=== PATIENT | female | born 1930 | race Caucasian/White ===

== ENCOUNTER 2017-09-06 16:08 | Emergency (ER) | payer BC ==
[2017-09-06 16:59] VITALS: BMI 22.6
--- NOTE | 2017-09-06 17:02 | PDOC ---
Attending Attestation - HPI HPI: 09/06/17 17:50 The patient is a 86 year old female, with a significant past medical history of CAD s/p stents, cholecystectomy, hypertension, acute renal insufficiency, and diabetes, who presents to the emergency department via EMS s/p mechanical fall yesterday. The patient fell on her right side while using her walker. She denies hitting her head and any loss of consciousness. Allergies: Losartin potassium, Penicillins, quinapril HCl, ranolazine. Social history: Nonsmoker. Denies EtOH use and recreational drug use. Past surgical history: cholecystectomy, stents Primary Care Physician: Dr. Dalton <Feliciano Weldon - Last Filed: 09/06/17 17:50> - Resident Resident Name: Pepe Smith - ED Attending Attestation I have performed the following: I have examined & evaluated the patient, The case was reviewed & discussed with the resident, I agree w/resident's findings & plan, Exceptions are as noted - Physicial Exam PE: 09/06/17 18:22 Patient is awake and alert, pale appearing, in no distress Normocephalic, atraumatic EOMI, conjunctiva are pale Neck is supple, there is no midline tenderness, no deformity; CTA, + tenderness to palpation along the anterior clavicular and anterior axillary lines in the intercostal spaces 4, 5, 6, 7 and 8 without bony crepitus or subcutaneous emphysema; RRR Pelvis is stable Range of motion to upper and lower extremities bilaterally; Gait deferred at this time. Cranial nerves II through XII grossly intact; motor is 5 of 54; no pronation drift; - Medical Decision Making 09/06/17 18:24 Patient is an 86-year-old female with multiple comorbidities who presents to the ER with traumatic right sided chest wall pain more than 24 hours after the mechanical fall. No head injury was reported and there is no indication for CT of head at this time as there are no signs and symptoms of acute intracranial pathology at this time. Will obtain right sided rib series and chest x-ray to rule out rib fractures/pneumothorax/hemothorax. Will reassess. Likely discharge. 09/06/17 19:39 Patient reassessed. Patient with mild to moderate right sided chest wall pain. We'll administer IV morphine. Chest x-ray reveals mildly displaced fractures of the ninth and 10th ribs with a small right-sided pleural effusion. Patient will require admission for pain control and pulmonary toilet. Will admit. 09/06/17 21:04 Patient reassessed. Patient refuses pain medication and wishes to be discharged home. A discussed the risk and benefits of discharge with the patient and her family. They expressed understanding. Will provide incentives barometer. Will discharge. <Rich Harris - Last Filed: 09/06/17 21:04> Attestations - Attestations 09/06/17 17:50 Documentation prepared by Feliciano Weldon, acting as medical equipment sales for Rich Harris MD. <Feliciano Weldon - Last Filed: 09/06/17 17:50>
[2017-09-06] MEDS ORDERED: ACETAMINOPHEN 1000 MG/100 ML VIAL (NON FORMULARY) IVPB ONE (17:18)
--- NOTE | 2017-09-06 17:50 | PDOC ---
History of Present Illness - History of Present Illness Initial Comments: 09/06/17 17:49 86 yo F w a hx of CAD s/p stents, cholecystectomy, hypertension, acute renal insufficiency, and diabetes, is here after tripping yesterday and falling down. She landed on her right ribs. She was walking with one hand on her walker and the other hand trying to hold something. She insists she did not hit her head when she fell, did not feel lightheaded beforehand, had no prodromal symptoms, and denies LOC at any point before or after the fall. Her right ribs are currently hurting her. She denies pain anywhere else. She was able to ambulate after the fall yesterday and reports no leg pain. She does admit to taking plavix. She denies recent fevers or infections. Denies any other joint pain. 09/06/17 17:50 <Pepe Smith - Last Filed: 09/06/17 19:32> <Rich Harris - Last Filed: 09/06/17 21:42> - General Chief Complaint: Injury Stated Complaint: FALL Time Seen by Provider: 09/06/17 16:30 Past History - Past Medical History Cardiac Disorders: Yes COPD: No Diabetes: Yes Dialysis: No (has chronic renal insufficiency) HTN: Yes Other medical history: gout - Surgical History Cardiac Surgery: Yes (stents) Cholecystectomy: Yes - Immunization History Immunization Up to Date: Yes - Suicide/Smoking/Psychosocial Hx Smoking Status: No Smoking History: Never smoked Have you smoked in the past 12 months: No Number of Cigarettes Smoked Daily: 0 Information on smoking cessation initiated: No Hx Alcohol Use: No Drug/Substance Use Hx: No <Pepe Smith - Last Filed: 09/06/17 19:32> <Rich Harris - Last Filed: 09/06/17 21:42> - Past Medical History Allergies/Adverse Reactions: Allergies Allergy/AdvReac Type Severity Reaction Status Date / Time losartan potassium Allergy Verified 02/16/16 17:45 [From Cozaar] Penicillins Allergy Verified 02/16/16 17:45 quinapril HCl [From Accupril] Allergy Verified 02/16/16 17:45 ranolazine [From Ranexa] Allergy Verified 02/16/16 17:45 Home Medications: Ambulatory Orders Atenolol [Tenormin -] 50 mg PO DAILY 08/19/12 Atorvastatin Ca [Lipitor] 10 mg PO HS 08/19/12 Cholecalciferol (Vitamin D3) [Vitamin D3 -] 1,000 unit PO DAILY 08/19/12 Clopidogrel Bisulfate [Plavix -] 75 mg PO DAILY 08/19/12 Hydrocodone Bit/Acetaminophen [Vicodin Es 7.5-750mg -] 1 - 2 tab PO QID PRN 04/02 [place] 3/Dha/Epa/Other Om3/D3 [[place]-3 + Vitamin D3 Liquid] 2,000 mg PO DAILY 04/02 Amlodipine Besylate [Norvasc -] 10 mg PO DAILY #0 tablet 08/21/12 Glipizide [Glucotrol -] 5 mg PO DAILY 02/16/16 Sodium Polystyrene Sulfon/Sorb [Sps 30 gm/120 ml Enema] 2 tbs PO DAILY 02/16/16 Allopurinol [Zyloprim -] 150 mg PO DAILY 09/06/17 B1/B2/B3/B5/B6/Iron/Meth/Choln [Geritol Tonic Liquid] 5 ml PO DAILY 09/06/17 Lorazepam [Ativan] 2 mg PO ASDIR PRN 09/06/17 Review of Systems - Review of Systems Comments:: 09/06/17 17:56 CARDIOVASCULAR: Positive: Right rib pain Absent: syncope, palpitations, irregular heart rate, lightheadedness, peripheraledema RESPIRATORY: Positive: pleuritic chest pain Absent: cough, shortness of breath, dyspnea with exertion, orthopnea, wheezing, stridor, hemoptysis MUSCULOSKELETAL: Absent: myalgia, arthralgia, joint swelling CONSTITUTIONAL: Absent: fever, chills, diaphoresis, generalized weakness, malaise, loss of appetite HEENT: Absent: rhinorrhea, nasal congestion, throat pain, throat swelling, difficulty swallowing, mouth swelling, ear pain, eye pain, visual Changes GASTROINTESTINAL: Absent: abdominal pain, abdominal distension, nausea, vomiting, diarrhea, constipation, melena, hematochezia GENITOURINARY: Absent: dysuria, frequency, urgency, hesitancy, hematuria, flank pain, genital pain SKIN: Absent: rash, itching, pallor HEMATOLOGIC/IMMUNOLOGIC: Absent: easy bleeding, easy bruising, lymphadenopathy, frequent infections ENDOCRINE: Absent: unexplained weight gain, unexplained weight loss, heat intolerance, cold intolerance NEUROLOGIC: Absent: headache, focal weakness or paresthesias, dizziness, unsteady gait, seizure, mental status changes, bladder or bowel incontinence PSYCHIATRIC: Absent: anxiety, depression, suicidal or homicidal ideation, hallucinations. <Pepe Smith - Last Filed: 09/06/17 19:32> *Physical Exam - Vital Signs Last Vital Signs Temp Pulse Resp BP Pulse Ox 97.8 F 58 L 16 162/84 99 09/06/17 16:54 09/06/17 16:54 09/06/17 16:54 09/06/17 16:54 09/06/17 16:54 - Physical Exam Comments: 09/06/17 17:58 GENERAL: Well developed, well nourished. Awake and alert. No acute distress. HEENT: There is conjunctival pallor. Normocephalic, atraumatic. PERRLA, EOMI. Sclera are non-icteric. Moist mucous membranes. Oropharynx is clear. NECK: Supple. Full ROM. No JVD. Carotid pulses 2+ and symmetric, without bruits. No thyromegaly. No lymphadenopathy. CARDIOVASCULAR: Regular rate and rhythm. No murmurs, rubs, or gallops. Distal pulses are 2+ and symmetric. PULMONARY: Patient appears to have pain on deep inspiration. Lungs clear to auscultation bilaterally. No wheezing, rales or rhonchi. ABDOMINAL: Soft. Non-tender. Non-distended. No rebound or guarding. No organomegaly. Normoactive bowel sounds. MUSCULOSKELETAL There is focal tenderness to palpation around the lateral 5th/6th rib. Normal range of motion at all joints. No CVA tenderness. EXTREMITIES: No cyanosis. No clubbing. No edema. No calf tenderness. SKIN: Warm and dry. Normal capillary refill. No rashes. No jaundice. NEUROLOGICAL: Alert, awake, appropriate. Cranial nerves 2-12 intact. No deficits to light touch and temperature in face, upper extremities and lower extremities. No motor deficits in the in face, upper extremities and lower extremities. Normoreflexic in the upper and lower extremities. Normal speech. Toes are down-going bilaterally. Gait is normal without ataxia. PSYCHIATRIC: Cooperative. Good eye contact. Appropriate mood and affect. <Pepe Smith - Last Filed: 09/06/17 19:32> - Vital Signs Last Vital Signs Temp Pulse Resp BP Pulse Ox 98.0 F 54 L 16 155/77 98 09/06/17 18:44 09/06/17 18:44 09/06/17 18:44 09/06/17 18:44 09/06/17 18:44 <Rich Harris - Last Filed: 09/06/17 21:42> ED Treatment Course - LABORATORY CBC & Chemistry Diagram: 09/06/17 17:50 09/06/17 17:50 - RADIOLOGY Radiology Studies Ordered: Category Date Time Status CHEST PA & LAT [RAD] Stat Radiology 09/06/17 17:39 Ordered RIBS RIGHT SIDE [RAD] Stat Radiology 09/06/17 17:15 Ordered <Pepe Smith - Last Filed: 09/06/17 19:32> - LABORATORY CBC & Chemistry Diagram: 09/06/17 17:50 09/06/17 17:50 - ADDITIONAL ORDERS Additional order review: Laboratory Results 09/06/17 09/06/17 17:50 17:50 PT with INR 11.90 INR 1.05 PTT (Actin FS) 34.4 Sodium 137 Potassium 4.0 Chloride 101 Carbon Dioxide 30 Anion Gap 6 L BUN 27 H Creatinine 1.0 Creat Clearance w eGFR 52.33 Random Glucose 131 H Calcium 9.6 09/06/17 17:50 RBC 3.53 L MCV 92.7 MCHC 33.9 RDW 13.3 MPV 7.3 L Neutrophils % 71.0 Lymphocytes % 21.0 D Monocytes % 7.0 Eosinophils % 0.4 Basophils % 0.6 - Medications Given in the ED: ED Medications Discontinued Medications Generic Name Dose Route Start Last Admin Trade Name Gloria PRN Reason Stop Dose Admin Acetaminophen 1,000 mg 09/06/17 17:18 09/06/17 17:51 Ofirmev Injection - IVPB 09/06/17 17:19 1,000 mg ONCE ONE Administration Morphine Sulfate 2 mg 09/06/17 19:33 09/06/17 19:59 Morphine Injection - IVPUSH 09/06/17 19:34 Not Given ONCE ONE <Rich Harris - Last Filed: 09/06/17 21:42> Medical Decision Making - Medical Decision Making 09/06/17 18:00 86 yo F on plavix fell down yesterday and is here in the ED with Right sided rib discomfort. Denies hitting her head, denies LOC, denies feeling lightheaded at any point before or after the fall. If patient came to the ED yesterday when she fell we would scan her head. Given patient presentation one day later we are only scanning her chest and ribs. Plan: Rib series, CXR, cbc,bmp, ekg, analgesia, re-assess. Fast performed at bedside - Fast negative. CXR showed multiple broken ribs. The patient and her daughter agree it is best to admit the patient to adequately deal with pain control and perform incentive spirometry in the hospital. 09/06/17 18:33 09/06/17 19:30 <Pepe Smith - Last Filed: 09/06/17 19:32> *DC/Admit/Observation/Transfer - Discharge Dispostion Decision to Admit order: Yes <Pepe Smith - Last Filed: 09/06/17 19:32> - Discharge Dispostion Decision to Admit order: No <Rich Harris - Last Filed: 09/06/17 21:42> Diagnosis at time of Disposition: Pleural effusion Broken ribs Qualifiers: Encounter type: initial encounter Rib fracture type: multiple ribs Fracture type: closed Laterality: right Qualified Code(s): S22.41XA - Multiple fractures of ribs, right side, initial encounter for closed fracture - Discharge Dispostion Condition at time of disposition: Fair - Referrals Referrals: Ryan Dalton MD [Primary Care Provider] - - Patient Instructions Printed Discharge Instructions: How to Prevent Falls, DI for Rib Fracture
[2017-09-06] MEDS ORDERED: ACETAMINOPHEN INJECTION 100 ML IVPB ONE ×2 (17:52→17:53)
[2017-09-06 17:56] LABS: BASO % 0.6 % (0-2.0); EOS % 0.4 % (0-4.5); HEMATOCRIT 32.8 % (32.4-45.2); HEMOGLOBIN 11.1 GM/dL (10.7-15.3); MCH 31.5 pg (25.7-33.7); MCHC 33.9 g/dl (32.0-36.0); MEAN CELL VOLUME 92.7 fl (80-96); MEAN PLT VOLUME 7.3 fl (7.5-11.1); PLATELET COUNT 221 K/MM3 (134-434); RBC 3.53 M/mm3 (3.60-5.2); RDW 13.3 % (11.6-15.6); WHITE BLOOD COUNT 5.9 K/mm3 (4.0-10.0)
[2017-09-06 18:31] LABS: INR 1.05 (0.82-1.09); PROTHROMBIN TIME (PATIENT) 11.9 SEC (9.7-13.0)
[2017-09-06 18:33] LABS: ACTIVATED PTT 34.4 SECONDS (25.2-36.5)
[2017-09-06 18:45] VITALS: BP 155/77; PULSE 54; TEMP 98
[2017-09-06 18:45] LABS: ANION GAP 6 (8-16); BLOOD UREA NITROGEN 27 mg/dL (7-18); CALCIUM 9.6 mg/dL (8.5-10.1); CHLORIDE 101 mmol/L (98-107); CO2 30 mmol/L (21-32); GLUCOSE,RANDOM 131 mg/dL (74-106); SODIUM 137 mmol/L (136-145)
[2017-09-06] MEDS: morphine CARPU-JECT 2 MG/1 ML DISP.SYRIN IVPUSH ONE ×2 (19:41→19:59)
[2017-09-06] MEDS ORDERED: MORPHINE SULFATE 2 MG/ML VIAL ONE (19:42)
--- NOTE | 2017-09-07 10:08 | EKG ---
Test Reason : Blood Pressure : / mmHG Vent. Rate : 055 BPM Atrial Rate : 055 BPM P-R Int : 242 ms QRS Dur : 076 ms QT Int : 466 ms P-R-T Axes : 042 -08 030 degrees QTc Int : 445 ms SINUS BRADYCARDIA WITH MARKED SINUS ARRHYTHMIA WITH 1ST DEGREE A-V BLOCK MINIMAL VOLTAGE CRITERIA FOR LVH, MAY BE NORMAL VARIANT NONSPECIFIC T WAVE ABNORMALITY ABNORMAL ECG WHEN COMPARED WITH ECG OF 16-FEB-2016 18:39, NONSPECIFIC T WAVE ABNORMALITY NOW EVIDENT IN LATERAL LEADS Confirmed by MANDI ESCAMILLA, MELLY ([id number]) on 09/07/2017 10:07:49 AM Referred By: Confirmed By:MELLY RAYMOND MD
--- NOTE | 2017-09-07 12:01 | PDOC ---
Patient Follow-up (Call Back) - Post ED Follow - Up Condition at time of discharge: Fair Disposition at time of original discharge: HOME Reason for Call Back: Radiology (Per radiologist, CXR/rib series read as fx to R 7th and 8th ribs w/ small pneumo seen Per records, pt was advised of rib fxs but no mention of pneumo I calledd both pt and her daughter at numbers listed in chart and left urgent messages for both, for pt to return to ED immediately)
--- NOTE | 2017-09-07 16:52 | PDOC ---
Patient Follow-up (Call Back) - Post ED Follow - Up Condition at time of discharge: Fair Disposition at time of original discharge: HOME Reason for Call Back: Radiology (Patient's daughter Michelle called back and explained to her the radiology findings and recommendations to come to the ER for further management as this may have worsened since the initial x-ray. She states will come shortly)
== END 2017-09-06 22:16 | disposition home or self-care (01) ==
LOC: JER 16:08 → UNDOADMIN 20:15 → JERBED 20:15 → JER 22:16
PROC: 3E033NZ Introduction of Analgesics, Hypnotics, Sedatives into Peripheral Vein, Percutaneous Approach (ICD-10-PCS; principal; 2017-09-06)
DX: S22.41XA Multiple fractures of ribs, right side, initial encounter for closed fracture (principal); J90 Pleural effusion, not elsewhere classified; I25.10 Atherosclerotic heart disease of native coronary artery without angina pectoris; I10 Essential (primary) hypertension; Z95.5 Presence of coronary angioplasty implant and graft; I12.9 Hypertensive chronic kidney disease with stage 1 through stage 4 chronic kidney disease, or unspecified chronic kidney disease; E11.22 Type 2 diabetes mellitus with diabetic chronic kidney disease; N18.9 Chronic kidney disease, unspecified; Z79.84 Long term (current) use of oral hypoglycemic drugs; Z88.8 Allergy status to other drugs, medicaments and biological substances; R26.89 Other abnormalities of gait and mobility; Z99.89 Dependence on other enabling machines and devices
CPT/HCPCS: 36415; 71046-TC-FY; 71101-TC-RT-FY; 80048; 85025; 85610; 85730; 93005; 93010; 96374; 99283-25; J0131

== ENCOUNTER 2017-09-07 18:17 | Emergency (ER) | payer BC ==
--- NOTE | 2017-09-07 18:30 | PDOC ---
History of Present Illness - General Stated Complaint: PCP SENT Time Seen by Provider: 09/07/17 18:20 - History of Present Illness Initial Comments: 09/07/17 19:00 86 yo F is here after she got a call from the ER that she might have a pneuomothorax or a small pleural effusion based on a CXR which was taken yesterday. They came to the ER to get a cat scan and definitively know what the diagnosis is. Patient denies being in any pain, denies having difficulty breathing, denies being SOB, denies any recent fevers, denies any deterioration from yesterday. 09/07/17 20:52 Past History - Past Medical History Allergies/Adverse Reactions: Allergies Allergy/AdvReac Type Severity Reaction Status Date / Time losartan potassium Allergy Verified 02/16/16 17:45 [From Cozaar] Penicillins Allergy Verified 02/16/16 17:45 quinapril HCl [From Accupril] Allergy Verified 02/16/16 17:45 ranolazine [From Ranexa] Allergy Verified 02/16/16 17:45 Home Medications: Ambulatory Orders Atenolol [Tenormin -] 50 mg PO DAILY 08/19/12 Atorvastatin Ca [Lipitor] 10 mg PO HS 08/19/12 Cholecalciferol (Vitamin D3) [Vitamin D3 -] 1,000 unit PO DAILY 08/19/12 Clopidogrel Bisulfate [Plavix -] 75 mg PO DAILY 08/19/12 Hydrocodone Bit/Acetaminophen [Vicodin Es 7.5-750mg -] 1 - 2 tab PO QID PRN 04/02 [place] 3/Dha/Epa/Other Om3/D3 [[place]-3 + Vitamin D3 Liquid] 2,000 mg PO DAILY 04/02 Amlodipine Besylate [Norvasc -] 10 mg PO DAILY #0 tablet 08/21/12 Glipizide [Glucotrol -] 5 mg PO DAILY 02/16/16 Sodium Polystyrene Sulfon/Sorb [Sps 30 gm/120 ml Enema] 2 tbs PO DAILY 02/16/16 Allopurinol [Zyloprim -] 150 mg PO DAILY 09/06/17 B1/B2/B3/B5/B6/Iron/Meth/Choln [Geritol Tonic Liquid] 5 ml PO DAILY 09/06/17 Lorazepam [Ativan] 2 mg PO ASDIR PRN 09/06/17 Cardiac Disorders: Yes COPD: No Diabetes: Yes Dialysis: No (has chronic renal insufficiency) HTN: Yes - Surgical History Cardiac Surgery: Yes (stents) Cholecystectomy: Yes - Immunization History Immunization Up to Date: Yes - Suicide/Smoking/Psychosocial Hx Smoking Status: No Smoking History: Never smoked Have you smoked in the past 12 months: No Number of Cigarettes Smoked Daily: 0 Hx Alcohol Use: No Drug/Substance Use Hx: No Review of Systems - Review of Systems Comments:: 09/07/17 20:55 CARDIOVASCULAR: Positive: Right rib pain, not as bad as yesterday Absent: syncope, palpitations, irregular heart rate, lightheadedness, peripheraledema RESPIRATORY: Positive: pleuritic chest pain yesterday Absent: cough, shortness of breath, dyspnea with exertion, orthopnea, wheezing, stridor, hemoptysis MUSCULOSKELETAL: Absent: myalgia, arthralgia, joint swelling CONSTITUTIONAL: Absent: fever, chills, diaphoresis, generalized weakness, malaise, loss of appetite HEENT: Absent: rhinorrhea, nasal congestion, throat pain, throat swelling, difficulty swallowing, mouth swelling, ear pain, eye pain, visual Changes GASTROINTESTINAL: Absent: abdominal pain, abdominal distension, nausea, vomiting, diarrhea, constipation, melena, hematochezia GENITOURINARY: Absent: dysuria, frequency, urgency, hesitancy, hematuria, flank pain, genital pain SKIN: Absent: rash, itching, pallor HEMATOLOGIC/IMMUNOLOGIC: Absent: easy bleeding, easy bruising, lymphadenopathy, frequent infections ENDOCRINE: Absent: unexplained weight gain, unexplained weight loss, heat intolerance, cold intolerance NEUROLOGIC: Absent: headache, focal weakness or paresthesias, dizziness, unsteady gait, seizure, mental status changes, bladder or bowel incontinence PSYCHIATRIC: Absent: anxiety, depression, suicidal or homicidal ideation, hallucinations. *Physical Exam - Vital Signs Last Vital Signs Temp Pulse Resp BP Pulse Ox 98.6 F 71 20 147/77 09/07/17 18:24 09/07/17 18:24 09/07/17 18:24 09/07/17 18:24 - Physical Exam Comments: 09/07/17 20:56 GENERAL: Well developed, well nourished. Awake and alert. No acute distress. Unhappy to be in the ER. HEENT: There is conjunctival pallor. Normocephalic, atraumatic. PERRLA, EOMI. Sclera are non-icteric. Moist mucous membranes. Oropharynx is clear. NECK: Supple. Full ROM. No JVD. Carotid pulses 2+ and symmetric, without bruits. No thyromegaly. No lymphadenopathy. CARDIOVASCULAR: Regular rate and rhythm. No murmurs, rubs, or gallops. Distal pulses are 2+ and symmetric. PULMONARY: Patient has less pain than she had yesterday. She does not have pain on deep inspiration. Lungs clear to auscultation bilaterally. No wheezing, rales or rhonchi. ABDOMINAL: Soft. Non-tender. Non-distended. No rebound or guarding. No organomegaly. Normoactive bowel sounds. MUSCULOSKELETAL There is focal tenderness to palpation around the lateral 5th/6th rib. Normal range of motion at all joints. No CVA tenderness. EXTREMITIES: No cyanosis. No clubbing. No edema. No calf tenderness. SKIN: Warm and dry. Normal capillary refill. No rashes. No jaundice. NEUROLOGICAL: Alert, awake, appropriate. Cranial nerves 2-12 intact. No deficits to light touch and temperature in face, upper extremities and lower extremities. No motor deficits in the in face, upper extremities and lower extremities. Normoreflexic in the upper and lower extremities. Normal speech. Toes are down-going bilaterally. Gait is normal without ataxia. PSYCHIATRIC: Cooperative. Good eye contact. Appropriate mood and affect. Medical Decision Making - Medical Decision Making 09/07/17 20:57 86 yo F here after coming to the ER yesterday. Here bc CXR showed possible pneumothorax. Plan today in the ED is to give her basic labs, a lidoderm patch for pain, US to assess for pneumo, as well as a CT scan. CT scan confirmed two broken ribs and showed no pneumothorax or pleural effusion. Patient refused to take meds or give blood. 09/07/17 22:30 *DC/Admit/Observation/Transfer Diagnosis at time of Disposition: Rib fractures - Discharge Dispostion Disposition: HOME Condition at time of disposition: Stable Decision to Admit order: No - Referrals Referrals: Elizabeth Schroeder MD [Primary Care Provider] - - Patient Instructions Printed Discharge Instructions: Rib Fracture Additional Instructions: You have been diagnosed with two broken ribs. Please come back to the ER if you start having a hard time breathing, if you get a fever, or have any other concerning symptoms. Please follow up with your primary care doctor in the next week to make sure you are feeling better. Take Tylenol as needed for pain. - Post Discharge Activity
[2017-09-07 19:41] VITALS: BP 147/88; PULSE 64; TEMP 98.6; BMI 24.8
[2017-09-07] MEDS ORDERED: LIDOCAINE 5% TOPICAL PATCH TP ONE (20:04)
--- NOTE | 2017-09-07 20:17 | PDOC ---
Attending Attestation - [facility] HPI: 09/07/17 20:18 [place] 86F with PMHx CAD s/p stents, cholecystectomy, hypertension, acute renal insufficiency, and diabetes presenting with abnormal CXR that was conducted yesterday evening. As per patient's daughter, patient came in yesterday afternoon with complaints of rib pain, s/p falls and was given a CXR which showed her to have two broken ribs. Patient reports receiving a phone call while at home from [employer] due to possible pneumothorax being present on the patient' s CXR, advising she come into the ED for further evaluation and confirmation. Patient currently not complaining of any pain while in the ED. Denies chest pain, Sob. Denies nausea, vomiting. Denies numbness, tingles. Denies loss of consciousness. Denies fevers ,chills. Denies abdominal pain. Denies any other symptoms. Allergies: penicillins, quinapril, losartan, ranolazine Social history: No smoking. No alcohol. No illicit drugs. Surgical history: As per HPI PMD:Dr. Elizabeth Schroeder - Physicial Exam PE: 09/07/17 20:18 General: Well appearing, awake and alert, NAD. HEENT: NCAT, PERRL, EOMI, pale conjunctiva, anicteric, moist mucus membranes, clear oropharynx.. Airway patent, normal phonation Neck: neck supple, FROM Chest: right lateral chest wall tenderness Lungs: CTAB, normal and even respirations, no respiratory distress Heart: RRR, 2+ peripheral pulses throughout, no peripheral edema Abdomen: soft, NTND, no peritoneal signs. Normal inspection Back: nontender, normal inspection and ROM MSK: no edema, RAO x4, ROM intact. No clubbing or cyanosis. normal bulk and tone. Neuro: alert, oriented appropriately; no focal neurologic deficits. Speech clear. Skin: warm and well perfused, cap refill <2 sec, baseline pallor <Todd De Jesus - Last Filed: 09/07/17 20:18> - Resident Resident Name: Pepe Smith - ED Attending Attestation I have performed the following: I have examined & evaluated the patient, The case was reviewed & discussed with the resident, I agree w/resident's findings & plan - Medical Decision Making 09/07/17 20:15 [place] 86F with PMHx CAD s/p stents, cholecystectomy, hypertension, acute renal insufficiency, and diabetes presenting with abnormal CXR that was conducted yesterday evening, Seen 09/06/17 s/p fall onto right side while walking with walker ~2 days ago, CXR with right 7-8th rib fx, ?apical PTX. she was offered admission, made aware of rib fx only, but then elected for discharge. Has been taking tylenol with some relief. No cp, sob, shaw, dizziness, weakness or paresthesias. No additional falls or gait instability. Vitals reviewed, wnl. normal Sats and respirations. DDx. PTX, multiple rib fx, effusion, pneumonia; chest wall /pulm contusion Plan: Thoracic US, CBC, CMP, CT chest. CXR yesterday reviewed, with right 7-8th rib fx, small apical ptx. bedside thoracic ultrasound with lung sliding bilaterally, particularly at the apex; A line profile. Interventions: tylenol, lidoderm patch, supplemental O2 pt and family members at bedside, discussed information and results from yesterday, will pursue CT chest and r/o progression of PTX, possible additional rib fractures. refusing labs, CT chest w/o ptx or pulm contusion; however no comment on rib fracture. called to radiologist, +addendum for known right 7-8th subacute rib fractures dispo: Pt to be discharged in stable condition. Patient and family made aware of impression and plan, return precautions discussed (including but not limited to worsening pain or symptoms), fevers, or signs of infection, chest pain, respiratory distress, inability to tolerate oral intake, dehydration, syncope, or neurologic changes). Follow up with PMD as recommended, follow up information provided, take medications as instructed for duration of time, rx lidoderm patch additionally to tylenol. continue with supportive care, pain control, IS. 09/07/17 23:44 <Sirena Deras - Last Filed: 09/07/17 23:45>
[2017-09-07] MEDS ORDERED: ACETAMINOPHEN 325 MG TABLET (FP) PO ONE (20:18)
[2017-09-07] MEDS ORDERED: ACETAMINOPHEN 325 MG TABLET (FP) ONE (20:51)
[2017-09-07] MEDS ORDERED: LIDOCAINE 5% TOPICAL PATCH ONE (20:52)
[2017-09-07] MEDS ORDERED: LIDOCAINE PATCH REMOVAL MC SCH (22:00)
== END 2017-09-07 22:40 | disposition home or self-care (01) ==
LOC: JER 18:17
DX: S22.41XD Multiple fractures of ribs, right side, subsequent encounter for fracture with routine healing (principal); Z91.81 History of falling; I25.10 Atherosclerotic heart disease of native coronary artery without angina pectoris; I10 Essential (primary) hypertension; Z95.5 Presence of coronary angioplasty implant and graft; I12.9 Hypertensive chronic kidney disease with stage 1 through stage 4 chronic kidney disease, or unspecified chronic kidney disease; E11.22 Type 2 diabetes mellitus with diabetic chronic kidney disease; Z79.84 Long term (current) use of oral hypoglycemic drugs; Z88.8 Allergy status to other drugs, medicaments and biological substances; Z99.89 Dependence on other enabling machines and devices; R26.89 Other abnormalities of gait and mobility
CPT/HCPCS: 71250-TC; 99282-25

== ENCOUNTER 2018-04-09 13:15 | Emergency (ER) | payer BC ==
[2018-04-09 13:45] VITALS: TEMP 98; BMI 23.0
[2018-04-09] MEDS ORDERED: ACETAMINOPHEN 325 MG TABLET (FP) PO ONE (14:30)
--- NOTE | 2018-04-09 14:30 | PDOC ---
History of Present Illness - General Chief Complaint: Pain Stated Complaint: FALL Time Seen by Provider: 04/09/18 14:30 History Source: Patient Exam Limitations: No Limitations - History of Present Illness Initial Comments: 04/09/18 16:14 The patient is a 86 year old female with a significant past medical history of CAD s/p stents x 4 (on Plavix), cholecystectomy, hypertension, acute renal insufficiency, and diabetes, who presents from home with family s/p sliding off the bed onto her buttock with witnessed head injury today. The patient reports left posterior shoulder pain and right back pain. She states her pain is localized and mild. As per daughters, the patient is stubborn and slides herself out of bed. The daughter at bedside states she saw the patient slide to the floor and hit her head but denies LOC. The patient denies chest pain, shortness of breath, headache and dizziness. The patient denies fever, chills, nausea, vomit, diarrhea and constipation. The patient denies dysuria, frequency, urgency and hematuria. Allergies: NKDA Past surgical history: none reported Social history: lives home with family. No toxic habits ROS: General/Constitutional: no fevers or chills. No weakness/sweats. HEENT: no headache or dizziness. No congestion. CVS: no chest pain, palpitations or syncope. Resp: no SOB, wheezing or hemoptysis. No cough. Gastrointestinal: no abdominal pain, nausea or vomiting or diarrhea. Genitourinary: no urinary sx, hematuria, urgency or frequency. MUSCULOSKELETAL: (+) posterior left shoulder pain. Right back pain. No joint pain and swelling. No neck pain. SKIN: no redness or skin changes, no discharge, no rash. No wounds. HEMATOLOGIC/LYMPHATIC: No anemia, easy bruising/bleeding, or history of blood clots. NEUROLOGIC: No headache, dizziness, LOC or altered mental status. No weakness, numbness or tingling. Allergic/Immunologic: no allergies All other systems reviewed and negative, or as documented in HPI. Physical exam: General: GCS 15 NAD, well appearing HEENT: NCAT, PERRL, EOMI. Airway intact. No battles sign or raccoon eyes. No e/ o ocular. Dentition intact. No e/o septal hematoma, nasal bridge stable. Neck: neck supple, no midline C spine tenderness or deformity, ROM intact. No anterior mass or crepitus, trachea midline. Resp: Lungs clear bilaterally Chest: no clavicle or chest wall tenderness or crepitus CVS: RRR, 2+ pulses throughout. Abdomen: Abdomen soft, nontender, nondistended. Back: Back nontender, no midline spinal tenderness along cervical/thoracic/ lumbar spine, FROM, no stepoffs. MSK: (+) mild tenderness to left scapula. Pelvis stable, Extremities symmetric , no focal areas of deformities, proximal and distally; no pain on axial loading. FROM in all extrem. Neuro: Alert, oriented appropriately. CN II-XII grossly symmetric and intact. no focal neuro deficits. Sensation and strength intact throughout. Pt is nonambulatory at baseline. Gait unassessed. Skin: intact, normal color and well perfused. No seatbelt signs at neck, chest or abdomen. Past History - Past Medical History Allergies/Adverse Reactions: Allergies Allergy/AdvReac Type Severity Reaction Status Date / Time losartan potassium Allergy Verified 02/16/16 17:45 [From Cozaar] Penicillins Allergy Verified 02/16/16 17:45 quinapril HCl [From Accupril] Allergy Verified 02/16/16 17:45 ranolazine [From Ranexa] Allergy Verified 02/16/16 17:45 Home Medications: Ambulatory Orders Atenolol [Tenormin -] 50 mg PO DAILY 08/19/12 Atorvastatin Ca [Lipitor] 10 mg PO HS 08/19/12 Cholecalciferol (Vitamin D3) [Vitamin D3 -] 1,000 unit PO DAILY 08/19/12 Clopidogrel Bisulfate [Plavix -] 75 mg PO DAILY 08/19/12 Hydrocodone Bit/Acetaminophen [Vicodin Es 7.5-750mg -] 1 - 2 tab PO QID PRN 04/02 [place] 3/Dha/Epa/Other Om3/D3 [[place]-3 + Vitamin D3 Liquid] 2,000 mg PO DAILY 04/02 Amlodipine Besylate [Norvasc -] 10 mg PO DAILY #0 tablet 08/21/12 Glipizide [Glucotrol -] 5 mg PO DAILY 02/16/16 Sodium Polystyrene Sulfon/Sorb [Sps 30 gm/120 ml Enema] 2 tbs PO DAILY 02/16/16 Allopurinol [Zyloprim -] 150 mg PO DAILY 09/06/17 B1/B2/B3/B5/B6/Iron/Meth/Choln [Geritol Tonic Liquid] 5 ml PO DAILY 09/06/17 Lorazepam [Ativan] 2 mg PO ASDIR PRN 09/06/17 Cardiac Disorders: Yes COPD: No Diabetes: Yes Dialysis: No (has chronic renal insufficiency) HTN: Yes - Surgical History Cardiac Surgery: Yes (stents) Cholecystectomy: Yes - Immunization History Immunization Up to Date: Yes - Suicide/Smoking/Psychosocial Hx Smoking Status: No Smoking History: Never smoked Have you smoked in the past 12 months: No Number of Cigarettes Smoked Daily: 0 Hx Alcohol Use: No Drug/Substance Use Hx: No *Physical Exam - Vital Signs Last Vital Signs Temp Pulse Resp BP Pulse Ox 98.0 F 58 L 18 191/87 H 99 04/09/18 13:15 04/09/18 13:15 04/09/18 13:15 04/09/18 13:15 04/09/18 13:15 Moderate Sedation - Procedure Monitoring Vital Signs: Procedure Monitoring Vital Signs Temperature 98.0 F 04/09/18 13:15 Pulse Rate 58 L 04/09/18 13:15 Respiratory Rate 18 04/09/18 13:15 Blood Pressure 191/87 H 04/09/18 13:15 O2 Sat by Pulse Oximetry (%) 99 04/09/18 13:15 Medical Decision Making - Medical Decision Making 04/09/18 16:15 hpi as documented VS wnl. dDx SDH, EDH, SAH, head bleed. C spine injury. fx/subluxation. contusion. CT head neg for bleed/injuries C spine with arthritic /degenerative changes, no fx/subluxation no other external signs of trauma, low utility for Xray imaging, doubt fx. no focal neuro deficits. no midline tenderness. fall safety prevention. caution on using benzos/opioids for her chronic pain. Pt to be discharged in stable condition. Patient and family made aware of impression and plan, return precautions discussed (including but not limited to worsening pain or symptoms), fevers, or signs of infection, chest pain, respiratory distress, inability to tolerate oral intake, dehydration, syncope, or neurologic changes). Follow up with PMD as recommended, follow up information provided, take medications as instructed for duration of time. continue with supportive care, avoid triggers and precipitants. All questions answered to patient's satisfaction and expressed understanding and comfort with this. Patient does not suffer from an acute life-threatening medical condition at this time she is safe for outpatient follow-up. 04/09/18 16:16 04/09/18 16:18 *DC/Admit/Observation/Transfer Diagnosis at time of Disposition: Fall Qualifiers: Encounter type: initial encounter Qualified Code(s): W19.XXXA - Unspecified fall, initial encounter Closed head injury Qualifiers: Encounter type: initial encounter Qualified Code(s): S09.90XA - Unspecified injury of head, initial encounter - Discharge Dispostion Disposition: HOME Condition at time of disposition: Good Decision to Admit order: No - Referrals Referrals: Ryan Dalton MD [Primary Care Provider] - - Patient Instructions Printed Discharge Instructions: DI for Closed Head Injury Additional Instructions: FALL PREVENTION AT HOME WHAT YOU NEED TO KNOW There are many different factors that can increase your risk of falls. Falls can happen any time, but the majority of them occur in the home. Fall prevention includes ways to make your home and other areas safer. It also includes ways you can move more carefully to prevent a fall. Health conditions that cause changes in your blood pressure, vision, or muscle strength and coordination may increase your risk for falls. Medicines, including anesthesia, may increase your risk for falls if they make you dizzy, weak, or sleepy. FALL PREVENTION TIPS Stand or sit up slowly. This may help you keep your balance and prevent falls. Do not walk and talk at the same time. Concentrate on the task of walking and continue the conversation after you've reached a safe place. Wear shoes that fit well and have soles that network/telecom engineer. Wear shoes both inside and outside. Use slippers with good network/telecom engineer. Avoid shoes with high heels. Use assistive devices as directed. Your healthcare provider may suggest that you use a cane or walker to help you keep you balance. Be sure you have adequate lighting throughout your house. Keep paths clear. Remove books, shoes and other objects from walkways and stairs. Keep cords for telephones and lamps out of the way so you dont need to walk over them. Remove small rugs or secure them with double-sided tape. This will prevent you from tripping. Use a nightlight when getting out of bed at night. Stay active to maintain overall strength and endurance. Know your limitations. If there is a task you can not complete with ease, do not risk a fall by trying to complete it. Call 911 or have someone else call if: You have fallen and are unconscious You have fallen and cannot move part of your body Contact your healthcare provider if: You have fallen and have pain or a headache You have questions or concerns about your condition or care. - Post Discharge Activity
[2018-04-09] MEDS ORDERED: ACETAMINOPHEN 325 MG TABLET (FP) ONE (16:10)
[2018-04-09] MEDS ORDERED: LIDOCAINE 5% TOPICAL PATCH TP ONE (16:16)
[2018-04-09] MEDS ORDERED: LIDOCAINE 5% TOPICAL PATCH ONE (16:55)
[2018-04-09 19:53] VITALS: BP 177/66; PULSE 60
[2018-04-09] MEDS ORDERED: LIDOCAINE PATCH REMOVAL MC SCH (22:00)
== END 2018-04-09 20:19 | disposition home or self-care (01) ==
LOC: JER 13:15
DX: S09.90XA Unspecified injury of head, initial encounter (principal); W06.XXXA Fall from bed, initial encounter; Y93.89 Activity, other specified; Y92.89 Other specified places as the place of occurrence of the external cause; I10 Essential (primary) hypertension; E11.9 Type 2 diabetes mellitus without complications; N28.89 Other specified disorders of kidney and ureter; Z95.5 Presence of coronary angioplasty implant and graft
CPT/HCPCS: 70450-TC; 72125-TC; 99281-25